=== PATIENT | female | born 1985 | race Caucasian/White ===

== ENCOUNTER 2022-05-26 11:02 | Emergency (ER) | payer OTHER, SELFPAY ==
--- NOTE | 2022-05-26 11:07 | ED.URI ---
HPI - URI/Sore Throat General Chief Complaint: Upper Respiratory Infection Stated Complaint: SORE THROAT/HEADACHE/STREP EXPOSURE Time Seen by Provider: 05/26/22 11:07 Source: patient and RN notes reviewed History of Present Illness HPI Narrative: Patient is a 36-year-old female who presents to urgent care with complaints of sore throat, headache, decreased appetite. Patient states that it started yesterday and her daughter was positive for strep last week and a co-worker positive yesterday. Patient denies any fevers, nausea or vomiting. Patient has been taking Tylenol cold and flu. No other acute complaints. No acute distress noted. Patient aware of the plan of care. Some parts of this dictation were generated by voice recognition software and may contain typographical and/or grammatical inaccuracies. Related Data Home Medications Medication Instructions Recorded Confirmed levothyroxine 137 mcg tablet 137 mcg PO DAILY 05/26/22 05/26/22 Allergies Allergy/AdvReac Type Severity Reaction Status Date / Time sulfamethoxazole Allergy Itching Verified 05/26/22 11:21 [From Bactrim] trimethoprim [From Bactrim] Allergy Itching Verified 05/26/22 11:21 Review of Systems Review of Systems: CONSTITUTIONAL: Denies fever, chills, or sweats. EYES: Denies visual changes, redness, or discharge. ENT: Denies rhinorrhea, congestion, otalgia. Reports a sore throat CARDIOVASCULAR: Denies chest pain, palpitations, or edema. RESPIRATORY: Denies cough or dyspnea. GASTROINTESTINAL: Denies abdominal pain, nausea, vomiting, or diarrhea. GENITOURINARY: Denies dysuria or hematuria. SKIN: Denies rash or itching. MUSCULOSKELETAL: Denies back pain, joint pain. Reports body aches NEUROLOGIC: Reports of headache All other systems reviewed are negative, except as documented in HPI. PMFSH Comments At the time of my signature, I reviewed and agree with the nursing past medical, surgical, social, and family history. There is no relevant family history pertinent to the patient complaint. Exam Narrative: GENERAL: This is a well-nourished, well-developed patient, in no apparent distress. HEAD: normocephalic, atraumatic. EYES: PERRL. Sclera clear/white. Vision is grossly intact. EARS: External ears normal, auditory canals clear and without drainage, TMs normal without perforation. Hearing grossly intact. NOSE: External nose normal with no obvious nasal discharge, nares without redness, clear rhinorrhea. THROAT: Mucous membranes moist, posterior pharynx clear. Moderate postnasal drainage NECK: Neck supple, non-tender without lymphadenopathy CARDIOVASCULAR: Regular rate and rhythm without murmurs, gallops, or rubs. RESPIRATORY: Clear to auscultation. Breath sounds equal bilaterally. No wheezes, rales, or rhonchi. SKIN: warm, intact with no suspicious lesions or rash, good texture and turgor. NEURO: awake, alert, and oriented to person, place and time. There were no obvious focal neurologic abnormalities. EXTREMITIES: No clubbing, cyanosis, or edema. Course Course Level of Care: Express Care Visit Vital Signs Vital signs: Vital Signs Oxygen Delivery Room Air 05/26/22 11:13 Temperature 98 F 05/26/22 11:18 Pulse Rate 65 05/26/22 11:18 Respiratory Rate 16 05/26/22 11:18 Blood Pressure 135/97 H 05/26/22 11:18 Pulse Oximetry 99 05/26/22 11:18 Oxygen Delivery Room Air 05/26/22 11:13 Reviewed- Patient is informed that they may have pre-hypertension or hypertension based on a blood pressure reading in the department. I recommend the patient call the primary care provider listed on their discharge instructions or a physician of their choice this week to arrange follow-up for further evaluation of possible pre-hypertension or hypertension. MDM - URI/Sore Throat MDM Narrative Medical decision making narrative: Reviewed lab results with the patient. She is aware that her strep swab was negative. Educated patient on culture
[2022-05-26 11:18] VITALS: BP 135/97; PULSE 65; RESP 16; TEMP 36.6; O2SAT 99
== END 2022-05-26 11:34 | disposition home or self-care (01) ==
PROVIDERS: Emergency Provider Nurse Practitioner Family; PCP Family Medicine
DX: J02.9 Acute pharyngitis, unspecified (principal)
CPT/HCPCS: 87081; 87880; 99203; G0463

== ENCOUNTER 2022-11-12 12:59 | Emergency (ER) | payer OTHER, SELFPAY ==
--- NOTE | ~2022-11-12 | CT_ITS ---
EXAMINATION: CT brain wo/w con DATE: 11/12/2022 15:27 INDICATION: Visual field changes and papilledema TECHNIQUE: Computed tomography (CT) of the head was performed without and subsequently with 100 CC Om nipaque 350 intravenous contrast. The mA was adjusted according to patient size. Iterative reconstruc tion technique was employed. Exam dose: 1362.00 mGy-cm total exam DLP. COMPARISON: None FINDINGS: No intracranial mass lesion or hemorrhage or cerebrovascular accident, midline shift or mas s effect. Normal flores-white matter differentiation. Normal ventricular size. Benign focal calcification along the right side of the posterior falx. No subdural or epidural hematoma. The orbits appear normal. Moderate mucoperiosteal thickening of the left maxillary sinus and slight lower right maxillary mucop eriosteal thickening. There are couple focal areas of soft tissue thickening within the posterior lef t ethmoid air cells. The paranasal sinuses and mastoid air cells otherwise are normally developed and aerated. No fracture or bone destruction of the cranial vault. IMPRESSION: No significant intracranial abnormality Reviewed, dictated and finalized at [facility]. Reviewed, dictated and finalized at [facility].
[2022-11-12 13:18] VITALS: BP 130/73; PULSE 67; RESP 16; TEMP 36.5; O2SAT 100
[2022-11-12 14:59] LABS: Anion Gap 7 mmol/L (8-16); Blood Urea Nitrogen 16 mg/dL (7-17); Calcium 8.7 mg/dL (8.4-10.2); Carbon Dioxide 29 mmol/L (22-30); Chloride 102 mmol/L (98-107); Estimated CRCL calculation 113 ml/min; Estimated Glomerular Filt Rate > 60; Glucose 101 mg/dL (65-110); Potassium 4.1 mmol/L (3.4-5.0); Sodium 138 mmol/L (137-145)
--- NOTE | 2022-11-12 16:57 | ED.EYEPROB ---
HPI - Eye Problem General Chief complaint: Eye Problems Stated complaint: sent by eye doc to r/o mass Time Seen by Provider: 11/12/22 13:31 History of Present Illness HPI Narrative: This is a 37-year-old female, with no significant past medical history, who was referred to the emergency department by her water/wastewater project manager for bilateral papilledema. The patient states for the past month, she has noted wiggly lines in the lower part of her vision in the left eye. She denies loss of vision. She also complains of a headache, described as throbbing and diffuse, similar to prior headaches. She denies other weakness, numbness, loss of vision or loss of hearing. Related Data Home Medications Medication Instructions Recorded Confirmed levothyroxine 137 mcg tablet 137 mcg PO DAILY 05/26/22 05/26/22 Allergies Allergy/AdvReac Type Severity Reaction Status Date / Time sulfamethoxazole Allergy Itching Verified 11/12/22 13:27 [From Bactrim] trimethoprim [From Bactrim] Allergy Itching Verified 11/12/22 13:27 Review of Systems Review of Systems: CONSTITUTIONAL: Denies fever, chills, or sweats. EYES: Left lower visual field rippling denies redness, or discharge. ENT: Denies rhinorrhea, congestion, sore throat, or otalgia. CARDIOVASCULAR: Denies chest pain, palpitations, or edema. RESPIRATORY: Denies cough or dyspnea. GASTROINTESTINAL: Denies abdominal pain, nausea, vomiting, or diarrhea. GENITOURINARY: Denies dysuria or hematuria. SKIN: Denies rash or itching. MUSCULOSKELETAL: Denies back pain, joint pain, or myalgia. NEUROLOGIC: Headache denies numbness, dizziness, or weakness. PSYCHIATRIC: Denies anxiety or depression. PMFSH Past Medical History Medical History Myopia Social History Social History (Updated 11/12/22 @ 16:59 by Brenden Steele MD) Smoking status: Former smoker Alcohol intake: current Substance use: never Exam Narrative: GENERAL: Well-developed, well-nourished, and in no acute distress. HEAD: Normocephalic, atraumatic. EYES: PERRLA and EOMI. Normal visual vasquez. ENT: Nares clear, no rhinorrhea or epistaxis. Mucous membranes moist. Oropharynx without tonsillar hypertrophy exudate or other lesions. NECK: Supple. No adenopathy or masses. No JVD CHEST: Clear to auscultation. No respiratory distress. No wheezes rales or rhonchi HEART: Regular rate and rhythm. No murmur heard. Normal peripheral pulses. ABDOMEN: Soft, nontender, nondistended, normal active bowel sounds. EXTREMITIES: Normal range of motion. No edema. SKIN: Warm, dry, no rash. NEURO: No focal deficits. Alert and oriented x3. Strength 5/5 in all extremities, sensation intact bilaterally, cranial nerves II through XII intact. No noted ataxia PSYCH: Normal mood and affect. Course Course Emergency Course: 15:25 - I discussed the patient with her water/wastewater project manager, Dr. Malave notes bilateral papilledema on exam. The patient's vision was 20/20 OD and 20/25 all OS with correction. There were no other acute findings. 16:30 - CT head negative for intracranial mass or hemorrhage. Paged neurology for consultation. 17:25 - Discussed patient with neurologist, Dr. Hernandez who notes limited availability in clinic and suggests admission for LP and further imaging. Shared decision making conversation had with the patient, who prefers to follow-up outpatient. Discussed return of emergency precautions including signs/symptoms of focal neurodeficit and respiratory distress. The patient voiced understanding and is comfortable with the plan. All questions answered to her satisfaction. Vital Signs Vital signs: Vital Signs Temperature 97.7 F 11/12/22 13:18 Pulse Rate 67 11/12/22 13:18 Respiratory Rate 16 11/12/22 13:18 Blood Pressure 130/73 11/12/22 13:18 Pulse Oximetry 100 11/12/22 13:18 Oxygen Delivery Room Air 11/12/22 13:18 Temperature 97.7 F 11/12/22
[2022-11-12 18:00] VITALS: BP 131/98; PULSE 75; RESP 18; O2SAT 100
== END 2022-11-12 18:02 | disposition home or self-care (01) ==
PROVIDERS: Emergency Provider Preventive Medicine Aerospace Medicine; PCP Family Medicine
DX: H47.10 Unspecified papilledema (principal); Z87.891 Personal history of nicotine dependence
CPT/HCPCS: 36415; 70470; 80048; 99284; Q9967

== ENCOUNTER 2023-10-14 15:49 | Emergency (ER) | payer OTHER, SELFPAY ==
--- NOTE | ~2023-10-14 | XR_ITS ---
3 VIEWS LUMBAR SPINE Ordering provider: Mi Morgan APRN History: . fall, low back pain . Comparison: None. FINDINGS: VERTEBRAL BODIES: No visible fracture or subluxation. DISK SPACES: Normal. SOFT TISSUES: Normal. IMPRESSION: No acute osseous abnormality lumbar spine. Reviewed, dictated and finalized at [facility].
[2023-10-14 16:04] VITALS: BP 134/82; PULSE 69; RESP 16; TEMP 36.5; O2SAT 100
--- NOTE | 2023-10-14 16:07 | ED.BACK ---
HPI - Back Pain/Injury General Chief Complaint: Back Pain/Injury Stated Complaint: Back Pain/Injured Head Source: patient Mode of arrival: ambulatory Limitations: no limitations History of Present Illness HPI Narrative: 38 y/o female presented for c/o left lower back pain after fall today at home. States she slipped while walking down the wheelchair ramp, was wearing socks and the ramp is plywood. States she came off of the ground and landed on her low back and struck her head on the ramp. Endorses headache. Denies photophobia, nausea, confusion, or dizziness. Reports back pain radiating into the left hips and side of the leg, denies numbness, tingling, weakness of the lower extremities, or change in gait, saddle paresthesia or loss of bowel or bladder. States she has been having some low back pain for a few weeks after doing yard work and lifting her boyfriend with MS. This incident has worsened the pain. pt also reports right ankle pains, described as sharp and shooting across the top of the foot. Denies swelling bruising or deformity, has been able to walk on it without difficulty. Related Data Home Medications Medication Instructions Recorded Confirmed levothyroxine 137 mcg tablet 137 mcg PO DAILY 05/26/22 10/14/23 atorvastatin 40 mg tablet 40 mg PO DAILY 10/14/23 10/14/23 fluoxetine 40 mg capsule 40 mg PO DAILY 10/14/23 10/14/23 topiramate 50 mg tablet 50 mg PO DAILY 10/14/23 10/14/23 Allergies Allergy/AdvReac Type Severity Reaction Status Date / Time sulfamethoxazole Allergy Itching Verified 10/14/23 16:16 [From Bactrim] trimethoprim [From Bactrim] Allergy Itching Verified 10/14/23 16:16 Review of Systems Review of Systems: CONSTITUTIONAL: Denies body aches, fever, chills EYES: Denies visual changes, photophobia CARDIOVASCULAR: Denies chest pain, palpitations, or edema. RESPIRATORY: Denies cough or dyspnea. GASTROINTESTINAL: Denies abdominal pain, nausea, vomiting, or diarrhea. SKIN: Denies wounds. MUSCULOSKELETAL: reports back pain, ankle pain NEUROLOGIC: reports headache, Denies numbness, tingling, or weakness. All systems reviewed & are unremarkable except as noted in HPI and below PMFSH Past Medical History Medical History Myopia Social History Social History Smoking status: Former smoker Alcohol intake: current Substance use: never Comments At time of signature, I have reviewed and agree with nursing past medical, surgical, social and family history unless otherwise noted. Please see nursing chart for further information. There is no relevant family history pertinent to the presenting complaint Exam Narrative: GENERAL: Well-appearing HEAD: Normocephalic, atraumatic; no hematoma or laceration EYES: conjunctivae clear; PERRLA, EOMI NECK: Supple. full ROM, no vpt or paraspinal tenderness CHEST: Speaks in full sentences. No respiratory distress. HEART: Regular rate and rhythm. Normal and equal peripheral pulses. MUSC: Reports Vertebral tenderness to lumbar approx L4-S1 area, left lower cat tender with light palpation, no bruising or wounds. BLEs with normal strength and sensation, normal range of motion. Walking with slow gait. pulse palpable and equal bilaterally, skin warm, dry, pink. Capillary refill less than 3 seconds. Ankle without swelling bruising or ttp. SKIN: Warm, dry NEURO: Alert and oriented x3. Back/Spine/Pelvis: Back/spine/pelvis image: 1. area of pain reported Course Course Emergency Course: Patient is aware of diagnosis, understands and agrees to treatment plan. Anticipatory guidance given. Patient agrees to follow-up as directed and is aware of reasons to seek care at the emergency department. Portions of this record may have been created with voice recognition software Level of Care: Express Care Visit Vital Signs Vital signs: Vital S
== END 2023-10-14 16:55 | disposition home or self-care (01) ==
PROVIDERS: Emergency Provider Nurse Practitioner Family; PCP Physician Assistant
DX: M54.16 Radiculopathy, lumbar region (principal); R51.9 Headache, unspecified; Z87.891 Personal history of nicotine dependence
CPT/HCPCS: 72100; 99213; G0463